=== PATIENT | male | born 1955 | race Caucasian/White ===

== ENCOUNTER 2022-07-29 12:09 | Emergency (ER) | payer OTHER ==
[~2022-07-29] VITALS: Ht 172.7 cm; Wt 61.0 kg
[2022-07-29 13:46] LABS: BASOPHILS % 0.2 % (0.0-2.0); EOSINOPHILS % 0.1 % (0.0-5.0); HEMATOCRIT. 38.6 % (42.0-52.0); HEMOGLOBIN. 12.7 g/dL (14.0-18.0); LYMPHOCYTES % 7.8 % (20.0-50.0); MEAN CORPUSCULAR HEMOGLOBIN 30.8 pg (28.0-32.0); MEAN CORPUSCULAR VOLUME 93.9 fL (80.0-94.0); MEAN PLATELET VOLUME 8.1 fl (7.4-10.4); MONOCYTES % 7.6 % (2.0-8.0); NEUTROPHILS % 84.3 % (40.0-76.0); PLATELET 314 x1000/uL (130-400); RED BLOOD CELL COUNT 4.11 mill/uL (4.7-6.1); RED CELL DISTRIBUTION WIDTH 15.1 % (11.6-14.6)
[2022-07-29 13:51] LABS: CHLORIDE 103 mEq/L (98-107)
[2022-07-29 14:02] LABS: ETHANOL BLOOD < 10 mg/dL
[2022-07-29 17:00] VITALS: BP 112/74
== END 2022-07-29 18:01 | disposition home or self-care (01) ==
LOC: ER 12:09
DX: E11.649 Type 2 diabetes mellitus with hypoglycemia without coma (principal)
CPT/HCPCS: 36415; 71045; 80053; 80320; 82962; 83690; 83880; 84484; 85025; 93005; 99285; Z7610; G0480